=== PATIENT | female | born 1975 | race Caucasian/White ===

== ENCOUNTER → 2018-02-17 | Outpatient (CLI) | payer OTHER | END | disposition home or self-care (01) | LOC: RAD 16:16 | DX: M54.12 Radiculopathy, cervical region (principal); M50.30 Other cervical disc degeneration, unspecified cervical region ==

== ENCOUNTER → 2018-02-24 | Outpatient (CLI) | payer OTHER | LOC: MAMMO 11:49 | DX: N63.0 Unspecified lump in unspecified breast (principal) ==

== ENCOUNTER → 2018-04-06 | Day surgery (SDC) | payer OTHER ==
[~2018-04-06] VITALS: Ht 162.5 cm; Wt 104.3 kg
[~2018-04-06] MED LIST: AMBIEN5 MG PO; IBU800 MG PO; ZANTAC 7575 M1 PO
[2018-04-06 07:15] VITALS: BP 108/57
[2018-04-06 09:00] VITALS: BP 93/61
[2018-04-06 09:15] VITALS: BP 120/63
[2018-04-06 09:30] VITALS: BP 109/73
== END | disposition home or self-care (01) ==
LOC: SDC 04-02 11:00
DX: Z12.11 Encounter for screening for malignant neoplasm of colon (principal); K22.2 Esophageal obstruction; K44.9 Diaphragmatic hernia without obstruction or gangrene; K21.9 Gastro-esophageal reflux disease without esophagitis; M81.0 Age-related osteoporosis without current pathological fracture; F41.9 Anxiety disorder, unspecified; F32.9 Major depressive disorder, single episode, unspecified; Z86.010 Personal history of colon polyps; Z85.3 Personal history of malignant neoplasm of breast; Z80.0 Family history of malignant neoplasm of digestive organs; Z88.0 Allergy status to penicillin; Z88.8 Allergy status to other drugs, medicaments and biological substances; Z87.891 Personal history of nicotine dependence; Z98.890 Other specified postprocedural states; Z87.442 Personal history of urinary calculi; Z82.49 Family history of ischemic heart disease and other diseases of the circulatory system; Z68.39 Body mass index [BMI] 39.0-39.9, adult; Z98.51 Tubal ligation status; Z91.040 Latex allergy status

== ENCOUNTER → 2018-04-10 | Outpatient (CLI) | payer OTHER | END | disposition home or self-care (01) | LOC: US 07:17 | DX: N92.0 Excessive and frequent menstruation with regular cycle (principal); R10.2 Pelvic and perineal pain ==

== ENCOUNTER → 2018-11-11 | Outpatient (CLI) | payer OTHER | END | disposition home or self-care (01) | LOC: RAD 07:45 | DX: M79.674 Pain in right toe(s) (principal) ==

== ENCOUNTER 2018-12-16 01:03 | Inpatient (IN) | payer OTHER ==
[~2018-12-16] VITALS: Ht 165.1 cm; Wt 109.5 kg
--- NOTE | ~2018-12-16 | EKG ---
[place], [place] ELECTROCARDIOGRAM REPORT NAME: VIJAY VU UNIT #: [id number] ROOM: 402 DOCTOR: DENITA DRAFT REPORT BIRTHDATE: [birth year] [facility] Test Date: 2018-12-16 Test Time: 02:00:01 Pat Name: VIJAY VU Department: Room: 402 Gender: F Game Trapper: Jami Vazquez : 1975 Requested By: CARMELA DURAN Order Number: [id number] Reading MD: Scarlett Patel Measurements Intervals [place] Rate: 121 P: 72 AR: 152 QRS: 70 QRSD: 94 T: -30 QT: 336 QTc: 477 Interpretive Statements Sinus tachycardia Probable inferior infarct, age indeterminate Baseline wander in lead(s) II No previous ECG available for comparison Electronically Signed On 12-18-2018 12:00:29 PDT by Scarlett Patel CM:EKGRPT:ELECTROCARDIOGRAM REPORT [id number] CARMELA BARGER DRAFT REPORT CARMELA DURAN
--- NOTE | ~2018-12-16 | EKG ---
[place], [place] ELECTROCARDIOGRAM REPORT NAME: VIJAY VU UNIT #: [id number] ROOM: 402 DOCTOR: DENITA DRAFT REPORT BIRTHDATE: [address] [facility] Test Date: 2018-12-16 Test Time: 06:25:17 Pat Name: VIJAY VU Department: Room: 402 2 Gender: F Nonprofit Manager: Ellie Cummings : 1975 Requested By: URBANO MARQUEZ Order Number: [id number] Reading MD: Scarlett Patel Measurements Intervals [place] Rate: 89 P: 74 [place]: 165 QRS: 76 QRSD: 100 T: 58 QT: 404 QTc: 492 Interpretive Statements Sinus rhythm Borderline T abnormalities, anterior leads Borderline prolonged QT interval No previous ECG available for comparison Electronically Signed On 12-18-2018 12:02:08 PDT by Scarlett Patel CM:EKGRPT:ELECTROCARDIOGRAM REPORT [id number] URBANO ROGEL DRAFT REPORT URBANO MARQUEZ DO
[2018-12-16 01:06] VITALS: BP 114/92
[2018-12-16 02:01] LABS: HEMATOCRIT 47.7 % (37.0-47.0); HEMOGLOBIN 15.7 g/dl (12.0-16.0); MEAN CELL VOLUME 89.8 fl (81.0-99.0); MEAN CORPUSCULAR HGB 29.6 pg (27.0-31.0); MEAN CORPUSCULAR HGB CONC 32.9 g/dl (33.0-37.0); PLATELET COUNT AUTOMATED 239 10*3/uL (130-400); RED BLOOD COUNT 5.31 10*6/uL (4.10-5.10); RED CELL DISTRI WIDTH 11.9 % (0-14.5)
[2018-12-16 02:16] LABS: ALBUMIN 3.7 gm/dl (3.1-4.5); ALKALINE PHOSPHATASE 122 U/L (45-117); BUN 10 mg/dl (7-24); CHLORIDE 101 mmol/L (98-107); CREATININE 1.07 mg/dL (0.55-1.02); POTASSIUM 3.7 mmol/L (3.5-5.1); SGOT/AST 20 IU/L (3-35); SGPT/ALT 27 U/L (12-78); SODIUM 136 mmol/L (136-145); TOTAL PROTEIN 8.4 gm/dL (6.4-8.2)
[2018-12-16 02:19] LABS: ACT PARTIAL THROMBO TIME 27.6 SECONDS (20.0-32.1)
--- NOTE | 2018-12-16 02:22 | NUR ---
LACTIC ACID 5.6, NOTIFIED.
[2018-12-16 02:26] LABS: ATYPICAL LYMPHS 2 % (0-0); PLATELET SUFFICIENCY NORMAL (NORMAL); TOTAL CELLS COUNTED 100 #CELLS
[2018-12-16] MEDS ORDERED: LISINOPRIL2.5 MG PO (05:05)
[2018-12-16] MEDS ORDERED: CETIRIZINE HYDR10 MG PO (05:05)
[2018-12-16] MEDS ORDERED: ATORVASTATIN CA10 M1 PO (05:06)
[2018-12-16] MEDS ORDERED: GLIPIZIDE2.5 MG PO (05:07)
[2018-12-16] MEDS ORDERED: HYDROXYZINE PAM25 M1 PO (05:09)
[2018-12-16 05:10] VITALS: BP 133/72
[2018-12-16] MEDS ORDERED: DIAZEPAM10 M1 PO (05:10)
--- NOTE | 2018-12-16 05:10 | NUR ---
A 43, admitted to , under the services of VALERI To DO with a diagnosis of CHEST PAIN, SOB, LACTIC ACIDOSIS. Chief complaint is CHEST PAIN CAUSED BY ANXIETY.. Patient arrived via bed from ER. Monitor applied. Initial assessment completed. Vital signs taken and recorded. VALERI TO DO notified of admission to the unit. Orders received. See assessment for past medical history, medications and allergies. Patient and/or family oriented to unit. [facility] visitation policy reviewed. Clothing/patient valuable form completed. BRAD ORTIZ
--- NOTE | 2018-12-16 06:35 | NUR ---
CALLED CONSULT TO [facility].
[2018-12-16] MEDS ORDERED: ESCITALOPRAM OX20 MG PO (06:51)
[2018-12-16] MEDS ORDERED: METFORMIN XR500 MG PO (06:51)
[2018-12-16] MEDS ORDERED: PREDNISONE10 MG PO (06:53)
[2018-12-16] MEDS ORDERED: DIALYVITE V5000 UNIT PO (06:54)
[2018-12-16] MEDS ORDERED: B121000 MCG/1 IM (06:54)
[2018-12-16] MEDS ORDERED: OMEPRAZOLE MAGN20 MG PO (06:55)
--- NOTE | 2018-12-16 06:56 | NUR ---
MED REQ UPDATED.
[2018-12-16 07:08] LABS: THYROID STIM HORMONE (HS) 0.506 uIU/ml (0.358-4.75)
[2018-12-16 08:00] VITALS: BP 113/69
--- NOTE | 2018-12-16 08:00 | NUR ---
PATIENT COMPLAINING OF INCREASED ANXIETY DR MULLEN NOTIFIED NEW ORDERS RECEIVED TO GIVE ATIVAN 1MG IV NOW
[2018-12-16 08:16] LABS: VITAMIN D, 25-HYDROXY 50.3 ng/mL (30-100)
--- NOTE | 2018-12-16 09:00 | NUR ---
Barrel Ribs Solderer in to talk to patient. Patient states lives at home with family. There are few in the home. Physician: alfredo el Pharmacy: [facility] services: none Patient's level of ADLs: INDEPENDENT Patient has working utilities: all working DME: none Follow-up physician's appointment after d/c: will be made by hospitalist nurse director upon discharge Does patient want to access PORTAL?: no Discharge plan discussed with patient, she states she will return home when medically stable, she is independent in adls and ambulation, she states she does not have any home needs at this time, case management will follow. RANDA RESENDIZ
[2018-12-16 12:00] VITALS: BP 114/55
--- NOTE | 2018-12-16 15:11 | NUR ---
Discharge instructions reviewed with patient/family. Patient receptive and verbalizes understanding. Follow-up care arranged. Written instructions given to patient/family. KENDELL SMITH
== END 2018-12-16 15:11 | disposition home or self-care (01) | DRG 880 ==
LOC: ED 01:03 → EDHOLD 04:43 → 4E 05:02
PROVIDERS: Family Medicine; Hospitalist; Student in an Organized Health Care Education/Training Program; ADMIT Family Medicine
DX: F41.9 Anxiety disorder, unspecified (principal); N17.0 Acute kidney failure with tubular necrosis; R65.11 Systemic inflammatory response syndrome (SIRS) of non-infectious origin with acute organ dysfunction; E87.2 Acidosis; F10.239 Alcohol dependence with withdrawal, unspecified; E87.1 Hypo-osmolality and hyponatremia; G40.909 Epilepsy, unspecified, not intractable, without status epilepticus; F17.210 Nicotine dependence, cigarettes, uncomplicated; K76.0 Fatty (change of) liver, not elsewhere classified; E87.6 Hypokalemia; R73.9 Hyperglycemia, unspecified; D75.89 Other specified diseases of blood and blood-forming organs; Z87.81 Personal history of (healed) traumatic fracture; Z82.49 Family history of ischemic heart disease and other diseases of the circulatory system; Z83.3 Family history of diabetes mellitus; Z79.899 Other long term (current) drug therapy; Z71.6 Tobacco abuse counseling

== ENCOUNTER → 2019-02-08 | Outpatient (CLI) | payer OTHER ==
[~2019-02-08] MED LIST changes: +ATORVASTATIN CA10 M1 PO; +B121000 MCG/1 IM; +CETIRIZINE HYDR10 MG PO; +DIALYVITE V5000 UNIT PO; +DIAZEPAM10 M1 PO; +ESCITALOPRAM OX20 MG PO; +GLIPIZIDE2.5 MG PO; +HYDROXYZINE PAM25 M1 PO; +LISINOPRIL2.5 MG PO; +METFORMIN XR500 MG PO; +OMEPRAZOLE MAGN20 MG PO; +PREDNISONE10 MG PO
[2019-02-08 10:04] LABS: BASO # 0.1 10*3/uL (0.0-0.1); BASO % 0.9 % (0.0-1.0); EOS # 0.3 10*3/uL (0.0-0.4); EOS % 3.9 % (1.0-4.0); HEMOGLOBIN 15.4 g/dl (12.0-16.0); LYMPH % 29.1 % (27.0-41.0); MEAN CELL VOLUME 87.4 fl (81.0-99.0); MEAN CORPUSCULAR HGB 28.6 pg (27.0-31.0); MEAN CORPUSCULAR HGB CONC 32.8 g/dl (33.0-37.0); MEAN PLATELET VOLUME 10.1 fl (9.6-12.3); MONO # 0.5 10*3/uL (0.1-1.0); MONO % 7.3 % (3.0-9.0); NEUT # 4.1 10*3/uL (2.3-7.9); NEUT % 58.5 % (47.0-73.0); PLATELET COUNT AUTOMATED 230 10*3/uL (130-400); RED BLOOD COUNT 5.38 10*6/uL (4.10-5.10); RED CELL DISTRI WIDTH 12.4 % (0-14.5)
[2019-02-08 10:39] LABS: ALBUMIN 3.6 gm/dl (3.1-4.5); ALKALINE PHOSPHATASE 96 U/L (45-117); BUN 6 mg/dl (7-24); CHLORIDE 105 mmol/L (98-107); CHOLESTEROL 202 mg/dL (<200); CREATININE 0.91 mg/dL (0.55-1.02); HDL CHOLESTEROL 34 mg/dl (40-60); LDL CHOLESTEROL 132 mg/dL (9-159); POTASSIUM 3.9 mmol/L (3.5-5.1); SGOT/AST 35 IU/L (3-35); SGPT/ALT 40 U/L (12-78); SODIUM 137 mmol/L (136-145); TOTAL PROTEIN 8.3 gm/dL (6.4-8.2); TRIGLYCERIDES 179 mg/dl (<150); VLDL CHOLESTEROL 36 mg/dL (6-40)
[2019-02-08 10:46] LABS: VITAMIN D, 25-HYDROXY 37.3 ng/mL (30-100)
== END | disposition home or self-care (01) ==
LOC: US 12-25 07:30
PROVIDERS: Nurse Practitioner Family
DX: K76.0 Fatty (change of) liver, not elsewhere classified (principal); E11.9 Type 2 diabetes mellitus without complications; E78.5 Hyperlipidemia, unspecified; E53.8 Deficiency of other specified B group vitamins; E55.9 Vitamin D deficiency, unspecified; E88.81 Metabolic syndrome and other insulin resistance; E66.01 Morbid (severe) obesity due to excess calories; E66.9 Obesity, unspecified; R94.5 Abnormal results of liver function studies; R78.2 Finding of cocaine in blood

== ENCOUNTER 2020-12-10 12:36 | Emergency (ER) | payer OTHER ==
[2020-12-10 13:47] LABS: HEMATOCRIT 42.7 % (37.0-47.0); MEAN CELL VOLUME 88.2 fl (81.0-99.0); MEAN CORPUSCULAR HGB 30.4 pg (27.0-31.0); MEAN CORPUSCULAR HGB CONC 34.4 g/dl (33.0-37.0); MEAN PLATELET VOLUME 11.8 fl (9.6-12.3); PLATELET COUNT AUTOMATED 104 10*3/uL (130-400); RED BLOOD COUNT 4.84 10*6/uL (4.10-5.10); RED CELL DISTRI WIDTH 11.7 % (0-14.5)
[2020-12-10 14:00] LABS: WHITE BLOOD COUNT 1.6 10*3/uL (4.8-10.8)
[2020-12-10 14:09] LABS: ALKALINE PHOSPHATASE 93 U/L (45-117); BUN 7 mg/dl (7-24); CHLORIDE 101 mmol/L (98-107); CREATININE 0.64 mg/dL (0.55-1.02); SGOT/AST 156 IU/L (3-35); SGPT/ALT 73 U/L (12-78); SODIUM 135 mmol/L (136-145); TOTAL PROTEIN 7.4 gm/dL (6.4-8.2)
[2020-12-10 14:15] LABS: PLATELET SUFFICIENCY LOW (NORMAL); TOTAL CELLS COUNTED 100 #CELLS
[2020-12-10] MEDS ORDERED: PROAIR HFA8.5 GM INH (18:11)
== END 2020-12-10 18:45 | disposition home or self-care (01) ==
LOC: ED 12:36
PROVIDERS: Internal Medicine
DX: U07.1 COVID-19 (principal); Z88.0 Allergy status to penicillin; Z91.040 Latex allergy status; Z91.041 Radiographic dye allergy status; Z79.899 Other long term (current) drug therapy; Z87.891 Personal history of nicotine dependence

== ENCOUNTER → 2020-12-18 | Outpatient (CLI) | payer OTHER ==
[~2020-12-18] MED LIST changes: +PROAIR HFA8.5 GM INH
== END | disposition home or self-care (01) ==
LOC: RAD 13:08
PROVIDERS: ATTEND Nurse Practitioner Family
DX: R91.8 Other nonspecific abnormal finding of lung field (principal); I87.8 Other specified disorders of veins; R05 Cough; R06.02 Shortness of breath; R10.84 Generalized abdominal pain

== ENCOUNTER → 2020-12-28 | Outpatient (CLI) | payer OTHER | END | disposition home or self-care (01) | LOC: CARD 09:27 | PROVIDERS: ATTEND Nurse Practitioner Family | DX: I49.3 Ventricular premature depolarization (principal); R00.2 Palpitations; R00.0 Tachycardia, unspecified ==

== ENCOUNTER → 2021-01-17 | Outpatient (CLI) | payer OTHER | END | disposition home or self-care (01) | LOC: CARD 09:53 | PROVIDERS: ATTEND Nurse Practitioner Family | DX: U07.1 COVID-19 (principal); I08.1 Rheumatic disorders of both mitral and tricuspid valves; R00.2 Palpitations; R06.02 Shortness of breath ==

== ENCOUNTER 2021-01-22 14:45 | Emergency (ER) | payer OTHER ==
[~2021-01-22] VITALS: Ht 162.5 cm; Wt 86.2 kg
[2021-01-22 15:31] LABS: BASO # 0.1 10*3/uL (0.0-0.1); BASO % 0.8 % (0.0-1.0); EOS # 0.3 10*3/uL (0.0-0.4); EOS % 3.4 % (1.0-4.0); HEMATOCRIT 42.7 % (37.0-47.0); LYMPH # 1.7 10*3/uL (1.3-4.4); LYMPH % 22.1 % (27.0-41.0); MEAN CELL VOLUME 91.2 fl (81.0-99.0); MEAN CORPUSCULAR HGB 30.8 pg (27.0-31.0); MEAN CORPUSCULAR HGB CONC 33.7 g/dl (33.0-37.0); MEAN PLATELET VOLUME 11.6 fl (9.6-12.3); MONO # 0.6 10*3/uL (0.1-1.0); MONO % 7.6 % (3.0-9.0); PLATELET COUNT AUTOMATED 199 10*3/uL (130-400); RED BLOOD COUNT 4.68 10*6/uL (4.10-5.10); RED CELL DISTRI WIDTH 12.3 % (0-14.5); WHITE BLOOD COUNT 7.6 10*3/uL (4.8-10.8)
[2021-01-22 15:54] LABS: ALBUMIN 3.1 gm/dl (3.1-4.5); ALKALINE PHOSPHATASE 105 U/L (45-117); BUN 10 mg/dl (7-24); CHLORIDE 106 mmol/L (98-107); CREATININE 0.66 mg/dL (0.55-1.02); POTASSIUM 3.6 mmol/L (3.5-5.1); SGOT/AST 67 IU/L (3-35); SGPT/ALT 63 U/L (12-78); SODIUM 137 mmol/L (136-145); TOTAL PROTEIN 7.6 gm/dL (6.4-8.2)
[2021-01-22 15:56] LABS: TROPONIN I < 0.015 ng/ml (<0.045)
== END 2021-01-22 17:20 | disposition home or self-care (01) ==
LOC: ED 14:45
PROVIDERS: Emergency Medicine
DX: R00.2 Palpitations (principal); Z88.0 Allergy status to penicillin; Z91.041 Radiographic dye allergy status; Z91.040 Latex allergy status; Z79.899 Other long term (current) drug therapy; Z87.891 Personal history of nicotine dependence

== ENCOUNTER → 2021-02-15 | Outpatient (CLI) | payer OTHER | END | disposition home or self-care (01) | LOC: LAB 14:00 | PROVIDERS: ATTEND Internal Medicine Cardiovascular Disease | DX: I49.3 Ventricular premature depolarization (principal); R00.2 Palpitations; R00.0 Tachycardia, unspecified ==

== ENCOUNTER → 2021-03-07 | Outpatient (CLI) | payer OTHER ==
[~2021-03-07] MED LIST changes: +EPIPEN 2-P0.3 MG/0.3 IJ; +METOPROLOL25 MG PO; +TRULICITY0.75 MG/0. SC
== END | disposition home or self-care (01) ==
LOC: CARD 00:03
PROVIDERS: ATTEND Internal Medicine Cardiovascular Disease
DX: R00.0 Tachycardia, unspecified (principal); R06.02 Shortness of breath; I49.3 Ventricular premature depolarization; R00.2 Palpitations; R94.31 Abnormal electrocardiogram [ECG] [EKG]

== ENCOUNTER → 2021-04-02 | Outpatient (CLI) | payer OTHER | END | disposition home or self-care (01) | LOC: COVID19 15:29 | PROVIDERS: ATTEND Internal Medicine | DX: Z11.52 Encounter for screening for COVID-19 (principal) ==

== ENCOUNTER 2021-06-21 18:42 | Emergency (ER) | payer OTHER ==
[~2021-06-21] VITALS: Ht 162.5 cm; Wt 90.7 kg
[2021-06-21 19:03] LABS: BASO % 0.3 % (0.0-1.0); EOS # 0.1 10*3/uL (0.0-0.4); EOS % 0.7 % (1.0-4.0); HEMATOCRIT 46.8 % (37.0-47.0); LYMPH # 0.3 10*3/uL (1.3-4.4); LYMPH % 3.5 % (27.0-41.0); MEAN CELL VOLUME 90.2 fl (81.0-99.0); MEAN CORPUSCULAR HGB CONC 34.4 g/dl (33.0-37.0); MEAN PLATELET VOLUME 11.3 fl (9.6-12.3); MONO # 0.4 10*3/uL (0.1-1.0); NEUT # 6.6 10*3/uL (2.3-7.9); NEUT % 89.2 % (47.0-73.0); PLATELET COUNT AUTOMATED 173 10*3/uL (130-400); RED BLOOD COUNT 5.19 10*6/uL (4.10-5.10); RED CELL DISTRI WIDTH 12.8 % (0-14.5); WHITE BLOOD COUNT 7.4 10*3/uL (4.8-10.8)
[2021-06-21 19:31] LABS: ALKALINE PHOSPHATASE 136 U/L (45-117); BUN 9 mg/dl (7-24); CHLORIDE 105 mmol/L (98-107); CREATININE 0.83 mg/dL (0.55-1.02); LIPASE 95 U/L (73-393); SGOT/AST 33 IU/L (3-35); SGPT/ALT 28 U/L (12-78); SODIUM 138 mmol/L (136-145); TOTAL PROTEIN 8.3 gm/dL (6.4-8.2)
[2021-06-21] MEDS ORDERED: ZOFRAN4 MG PO (20:58)
== END 2021-06-21 21:00 | disposition home or self-care (01) ==
LOC: ED 18:42
PROVIDERS: Physician Assistant
DX: K52.9 Noninfective gastroenteritis and colitis, unspecified (principal); Z88.0 Allergy status to penicillin; Z91.041 Radiographic dye allergy status; Z91.040 Latex allergy status; Z88.6 Allergy status to analgesic agent; Z79.899 Other long term (current) drug therapy; Z98.51 Tubal ligation status; Z98.890 Other specified postprocedural states; Z87.891 Personal history of nicotine dependence